=== PATIENT | female | born 1975 | race Caucasian/White ===

== ENCOUNTER 2022-02-04 12:13 | Day surgery (SDC) | payer MEDICAID ==
[2022-02-02 12:07] LABS: COVID AG,FIA SOURCE NASAL SWAB
[~2022-02-04] VITALS: Ht 170.2 cm; Wt 159.1 kg
[~2022-02-04 12:13] MED LIST: ASCO500 PO; FURO20 PO; HYDR25TA PO; LIDOCAINE/PF 2% 5 ML VIAL IM ONE; METO25 PO; OMEP20CA12 PO; POTA10CA44 PO; PROPOFOL 1% 20 ML VIAL IVP ONE; SODIUM CHLORIDE 0.9% 1,000 ML ONE
[2022-02-04] MEDS ORDERED: SODIUM CHLORIDE 0.9% 1,000 ML IV ONE (12:30)
== END 2022-02-04 16:04 | disposition home or self-care (01) ==
LOC: SURGERY 12:13
PROVIDERS: ATTEND Internal Medicine Gastroenterology
DX: K21.9 Gastro-esophageal reflux disease without esophagitis (principal); K29.70 Gastritis, unspecified, without bleeding; K44.9 Diaphragmatic hernia without obstruction or gangrene; I10 Essential (primary) hypertension; Z90.49 Acquired absence of other specified parts of digestive tract; Z79.899 Other long term (current) drug therapy; Z98.890 Other specified postprocedural states
CPT/HCPCS: 84703; 87426; 43239; 88305; 88312; 88313; C9803; C1769; J2704; J3490; J7030